=== PATIENT | female | born 1980 | race Caucasian/White ===

== ENCOUNTER 2016-05-11 06:32 | Emergency (ER) | payer OTHER ==
[~2016-05-11] VITALS: Ht 167.6 cm; Wt 60.0 kg
[2016-05-11 06:34] VITALS: BP 120/83; PULSE 83; RESP 16; O2SAT 98
--- NOTE | 2016-05-11 06:42 | ED.REPORT ---
HPI-Preg Under 20 Weeks Date of Service May 11, 2016 ED Provider: Renan Alexander DO Pt is a 35 y.o. female who reports she is 12 weeks presents to the ED c /o abnormal vaginal bleeding onset 0530 today. She describes the bleeding as spotting and receiving dock checker than her average period. She denies associated pain. She also denies any recent heavy lifting, extreme exertion, sexual activity, or vaginal insertion. She goes to for her primary care and when she contacted them this morning they recommended she be seen in a local ED. She reports that she had an ultrasound 3 days ago and it showed normal heart tones. The pt is , with a miscarriage approximately 4 months ago. Blood type B+ Nursing Notes Stated Complaint: SPOTTING/12 WKS Chief Complaint: Female Abdominal Pain Nursing Notes Reviewed: Yes Allergies: Coded Allergies: No Known Allergies (Unverified , 05/11/16) General Time Seen by Provider: 06:41 Chief Complaint Vaginal bleeding Context: : Known 1st trim , ... (3), Para... (1) Hx Obtained From: Patient Arrived By: Walk-in Onset Occurred: 1 - 4 hours ago Progression Since Onset: Intermittent Severity: Current: No pain currently Severity: Maximum: No pain Past Medical History Past Medical History Notes: , Rh+ Past Medical History Healthy Past Surgical History None reported Social History Other Social History: Ambulatory Status Independent Review of Systems GI: Denies: Abdominal pain Female: Reports: , Vaginal bleeding - abnl, Denies: Pelvic pain Complete sys rev & neg: except as marked. Physical Exam Initial Vital Signs Vital Signs (First) Date Time Temp Pulse Resp B/P Pulse Ox O2 Delivery O2 Flow Rate FiO2 05/11/16 06:34 36.6 83 16 120/83 98 Room Air Initial VS: Reviewed General/Constitutional: Awake, Alert, No acute distress, Well appearing, Well developed, Well hydrated, Well nourished, Not toxic appearing Abdomen: Atraumatic, Soft, Non-tender, No guarding, No rebound, No distention Female Genitourinary: Exam deferred : FHT present by U/S, movement present Interpretation & Diagnostics Lab Results Interpretation Result Diagram: 05/11/16 0708 Test 05/11/16 07:08 White Blood Count 5.7th/mm3 (3.8-10.1) Red Blood Count 3.70mil/mm3 (3.90-5.20) Hemoglobin 11.9g/dL (12.0-15.6) Hematocrit 34.0% (35.0-46.0) Mean Corpuscular Volume 91.9fL (81-100) Mean Corpuscular Hemoglobin 32.2pg (27.0-35.0) Mean Corpuscular Hemoglobin Concent 35.0% (32.0-37.0) Red Cell Distribution Width 12.2% (12.3-15.4) Platelet Count 248bil/L (150-400) Neutrophils (%) (Auto) 65.9% (40-74) Lymphocytes (%) (Auto) 22.7% (14-46) Monocytes (%) (Auto) 7.7% (4-12) Eosinophils (%) (Auto) 3.3% (0-5) Basophils (%) (Auto) 0.2% (0-3) HCG Beta Subunit [id number]/mL Hold Connor Top Tube Received (Received) Re-Eval/Medical Decision Med Decision/Clinical Course Early bleeding, viable IUP on bedside ultrasound with spontaneous movement and heart tones, patient describes the bleeding is much less than a period and reports that it is tapering off during her ER visit. Rh+ according to the patient. Patient will be discharged with strict return and follow-up precautions. Source of Hx: Old records Re-Evaluation/Progress : Time of Eval: 07:00 Re-Evaluation/Progress Note: exam performed with bedside US. FHT and movement present upon examination. Counseled Regarding: Diagnosis, Lab results, Need for follow-up, When/why to return to ED Discharge & Departure Primary Impression: Threatened miscarriage Additional Impression: Vaginal bleeding in patient at less than 20 weeks gestation Disposition: Home Discharge Condition All VS Reviewed: Yes Condition: No Change Additional Instructions: Thank you for entrusting us with your care today. You were seen for abnormal vaginal bleeding while . We were able to perform a bedside ultrasound and observe heart tones and movement. Light spotting can be normal this early in . It is however still possible to have a spontaneous miscarriage. I recommend you follow up with your [facility] for additional serial HCG tests. Please return if you develop increased bleeding, abdominal pain, pelvic pain, fever, vomiting, or any new or worsening symptoms. I wish you the best of luck with your ! Scribe Attestation Portions of this note were transcribed by Shira Rodriguez. I, Dr. Alexander personally performed the history, physical exam and medical decision-making; I reviewed and confirmed the accuracy of the information in the transcribed note. Signed by: Aguilar Zheng, 05/11/16 and 0702. Renan Alexander DO May 11, 2016 06:42 SHIRA RODRIGUEZ May 11, 2016 06:50
[2016-05-11 07:26] LABS: BASOPHILS % (AUTO) 0.2 % (0-3); EOSINOPHILS % (AUTO) 3.3 % (0-5); MONOCYTES % (AUTO) 7.7 % (4-12); Mean Corpuscular Hemoglobin 32.2 pg (27.0-35.0); Mean Corpuscular Volume 91.9 fL (81-100); NEUTROPHILS % (AUTO) 65.9 % (40-74); Platelet Count 248 bil/L (150-400)
[2016-05-11 08:39] VITALS: BP 109/52; PULSE 79; RESP 16; O2SAT 98
== END 2016-05-11 08:36 | disposition home or self-care (01) ==
LOC: SED 06:32
DX: O20.0 Threatened abortion (principal); Z3A.12 12 weeks gestation of pregnancy